=== PATIENT | male | born 1955 | race Caucasian/White ===

== ENCOUNTER 2020-07-21 13:00 | Outpatient (RCR) | payer MEDICARE, SELFPAY ==
[2020-04-27 13:00] VITALS: BP 129/87; PULSE 82; RESP 16; O2SAT 98; BMI 25.7
== END 2020-07-26 23:59 | disposition home or self-care (01) ==
PROVIDERS: PCP Emergency Medicine; Visit Provider Hospitalist
DX: I42.9 Cardiomyopathy, unspecified (principal); Z95.1 Presence of aortocoronary bypass graft
CPT/HCPCS: 93798

== ENCOUNTER 2020-07-28 12:48 | Outpatient (RCR) | payer MEDICARE, SELFPAY | END 2020-07-31 15:20 | disposition home or self-care (01) | PROVIDERS: PCP Emergency Medicine; Visit Provider Hospitalist | DX: Z95.1 Presence of aortocoronary bypass graft (principal); I42.9 Cardiomyopathy, unspecified | CPT/HCPCS: 93798 ==